=== PATIENT | male | born 1960 | race Caucasian/White ===

== ENCOUNTER 2023-02-27 19:08 | Inpatient (IN) | payer BC, OTHER ==
[~2023-02-27] VITALS: Ht 167.6 cm; Wt 75.9 kg
[2023-02-27 19:17] VITALS: BP_SYST 139; PULSE 81; RESP 16; TEMP 98; O2SAT 97
[2023-02-27] MEDS ORDERED: KETOROLAC TROMETHAMINE 30 MG VIAL IM ONE (19:30)
[2023-02-27] MEDS ORDERED: KETOROLAC TROMETHAMINE 60 MG/2 ML VIAL IM ONE (19:45)
[2023-02-27] MEDS ORDERED: HYDROcodone/ACETAMIN 10-325 MG TAB PO ONE (20:45)
[2023-02-27] MEDS ORDERED: DICL75TA5 PO (22:43)
[2023-02-27] MEDS ORDERED: HYDR-3927 PO (22:43)
[2023-02-27 23:26] LABS: BASOPHILS % (AUTO) 0.3 % (0.0-2.0); EOSINOPHILS % (AUTO) 0.4 % (0.0-4.0); HEMATOCRIT 40.9 % (36-54); HEMOGLOBIN 14.1 g/dL (14.0-18.0); LYMPHOCYTES # (AUTO) 1.9 K/uL (1.0-5.5); LYMPHOCYTES % (AUTO) 18.7 % (20.5-51.5); MEAN CORPUSCULAR HEMOGLOBIN 32 pg (27-31); MEAN CORPUSCULAR HGB CONC 35 % (32-36); MEAN CORPUSCULAR VOLUME 94 fL (79.0-98.0); MONOCYTES # (AUTO) 0.8 K/uL (0.0-1.0); MONOCYTES % (AUTO) 8.1 % (1.7-9.3); NEUTROPHILS # (AUTO) 7.2 K/uL (1.8-7.7); NEUTROPHILS % (AUTO) 72.5 % (40.0-70.0); PLATELET COUNT (AUTO) 213 K/uL (130-430); RED BLOOD CELL COUNT(AUTO) 4.37 MIL/uL (4.2-6.2); RED CELL DISTRIBUTION WIDTH 13.7 % (9.0-15.0); WHITE BLOOD COUNT (AUTO) 9.9 K/uL (4.8-10.8)
[2023-02-27 23:41] LABS: PROTHROMBIN TIME 10.4 SECS (9.5-12.5)
[2023-02-27 23:45] LABS: CALCIUM 8.9 mg/dL (8.4-11.0); CREATININE 1.2 mg/dL (0.55-1.30); POTASSIUM 3.7 mmol/L (3.5-5.1)
[2023-02-27 23:48] LABS: ALBUMIN 3.8 g/dL (3.4-4.8); TOTAL BILIRUBIN 1.3 mg/dL (0.0-1.0); TOTAL PROTEIN, SERUM 7.2 g/dL (6.4-8.3)
[2023-02-28] VITALS (7 sets, daily range): BP systolic 120–134; PULSE 68–86; RESP 16–18; TEMP 98–99.5; O2SAT 94–100
[2023-02-28] MEDS ORDERED: D5/0.45 NS 1,000 ML IV ONE
[2023-02-28] MEDS ORDERED: HYDROmorphone 1 MG/ML INJ. CARTRIDGE IVP PRN
[2023-02-28] MEDS ORDERED: DIPHTH,PERTUSS(ACELL),TET VAC 0.5 ML VIAL (Tdap) I.M. ONE ×2 (02:34)
[2023-02-28] MEDS ORDERED: ceFAZolin SODIUM 1 GM VIAL IM SCH (09:00)
[2023-02-28] MEDS ORDERED: ceFAZolin SODIUM 2 GM VIAL IM SCH (09:00)
[2023-02-28] MEDS: ceFAZolin SODIUM 2 GM in D5W 100 ML IV SCH ×2 (14:15→21:16)
[2023-02-28] MEDS ORDERED: ONDANSETRON HCL 4 MG/2 ML VIAL IVP PRN (14:30)
[2023-02-28 15:17] LABS: PROTHROMBIN TIME 10.4 SECS (9.5-12.5)
[2023-02-28] MEDS ORDERED: PANTOPRAZOLE SODIUM 40 MG/VIAL (PROTONIX) IVP ONE (15:30)
[2023-03-01 01:30] VITALS: BP_SYST 118; PULSE 78; RESP 17; TEMP 98.2; O2SAT 95
[2023-03-01] MEDS: ceFAZolin SODIUM 2 GM in D5W 100 ML IV SCH (05:25)
[2023-03-01 06:29] LABS: BASOPHILS % (AUTO) 0.4 % (0.0-2.0); EOSINOPHILS # (AUTO) 0.1 K/uL (0.0-0.4); EOSINOPHILS % (AUTO) 1.2 % (0.0-4.0); HEMATOCRIT 37.4 % (36-54); LYMPHOCYTES # (AUTO) 1.6 K/uL (1.0-5.5); LYMPHOCYTES % (AUTO) 19.4 % (20.5-51.5); MEAN CORPUSCULAR HEMOGLOBIN 32 pg (27-31); MEAN CORPUSCULAR HGB CONC 35 % (32-36); MEAN CORPUSCULAR VOLUME 93 fL (79.0-98.0); MONOCYTES # (AUTO) 0.6 K/uL (0.0-1.0); MONOCYTES % (AUTO) 6.7 % (1.7-9.3); NEUTROPHILS # (AUTO) 5.9 K/uL (1.8-7.7); NEUTROPHILS % (AUTO) 72.3 % (40.0-70.0); PLATELET COUNT (AUTO) 189 K/uL (130-430); RED BLOOD CELL COUNT(AUTO) 4.01 MIL/uL (4.2-6.2); RED CELL DISTRIBUTION WIDTH 13.5 % (9.0-15.0); WHITE BLOOD COUNT (AUTO) 8.2 K/uL (4.8-10.8)
[2023-03-01 07:00] LABS: CALCIUM 8.5 mg/dL (8.4-11.0); CREATININE 1.09 mg/dL (0.55-1.30); POTASSIUM 3.4 mmol/L (3.5-5.1)
[2023-03-01 08:00] VITALS: BP_SYST 114; PULSE 72; RESP 18; TEMP 98.8; O2SAT 97; O2SAT 99
[2023-03-01] MEDS ORDERED: TAMSULOSIN HCL 0.4 MG CAP PO SCH (09:00)
[2023-03-01] MEDS ORDERED: PANTOPRAZOLE SODIUM 40 MG/VIAL (PROTONIX) IVP SCH (09:00)
[2023-03-01 15:53] VITALS: BP_SYST 110; PULSE 66; RESP 18; TEMP 98.2; O2SAT 100
[2023-03-01 17:50] VITALS: BP_SYST 114; PULSE 68; RESP 18; TEMP 98.2; O2SAT 100
== END 2023-03-01 18:30 | disposition home or self-care (01) | DRG 965 ==
LOC: SED 19:08 → SMU 23:51
PROVIDERS: ADMIT Specialist; ATTEND Specialist
DX: S32.491A Other specified fracture of right acetabulum, initial encounter for closed fracture (principal); S72.001A Fracture of unspecified part of neck of right femur, initial encounter for closed fracture; S32.511A Fracture of superior rim of right pubis, initial encounter for closed fracture; N40.0 Benign prostatic hyperplasia without lower urinary tract symptoms; W18.39XA Other fall on same level, initial encounter; Y93.89 Activity, other specified; Z79.891 Long term (current) use of opiate analgesic; Z79.899 Other long term (current) drug therapy; Z79.1 Long term (current) use of non-steroidal anti-inflammatories (NSAID); Y92.89 Other specified places as the place of occurrence of the external cause; Y99.8 Other external cause status
CPT/HCPCS: 36415; 73502; 73700-TC; 76376; 80048; 80053; 85025; 85610-TC; 85730-TC; 90715; 93005; 96372; 97163-GP; 97530-GP; 99285; C9113; J0690; J1885; J2405; J7060